=== PATIENT | female | born 1945 | race American Indian/Alaskan Native ===

== ENCOUNTER 2017-09-12 19:40 | Emergency (ER) | payer MEDICARE ==
[2017-09-12 19:49] VITALS: BP 145/89
[2017-09-12] MEDS ORDERED: DECADRON IM ONE (21:51)
[2017-09-12] MEDS ORDERED: BENADRYL PO ONE (21:51)
[2017-09-12] MEDS ORDERED: REGLAN PO ONE (21:51)
--- NOTE | 2017-09-12 21:58 | Emergency Department Report ---
HPI - General Chief Complaint: Allergic Reaction Time Seen by Provider: 09/12/17 21:49 - HPI HPI: Patient is a 69-year-old -Spanish female sure patient states she H last night and went to sleep and woke up with a rash on her neck red raised hives shortness of breath patient has not taken Benadryl. Patient denies chest pain shortness of breath no dizziness no lightheadedness nausea no vomiting. Rash is localized to face and neck ED Past Medical Hx - Past Medical History Hx Hypertension: Yes Hx Diabetes: Yes Hx Arthritis: Yes - Surgical History Past Surgical History?: Yes Hx Cholecystectomy: Yes - Social History Smoking Status: Never Smoker Substance Use Type: None - Medications Home Medications: Home Medications Medication Instructions Recorded Confirmed Last Taken Type ALBUTEROL Inhaler [ProAir HFA 2 puff IH QID PRN #1 inh 06/03/13 Unknown Rx Inhaler] Azithromycin [Zithromax Z-HARVEY] 250 mg PO DAILY #6 tab 06/03/13 Unknown Rx Benazepril/Hydrochlorothiazide 2 tab PO QDAY 06/03/13 06/03/13 06/03/13 12:00 History [Benazepril-Hctz 20-25 mg] Estrogen,Con/M-Progest Acet 1 tab PO QDAY 06/03/13 06/03/13 06/03/13 12:00 History [Prempro 0.45-1.5 mg Tablet] Promethazine /Codeine 5 ml PO Q6H PRN #60 udc 06/03/13 Unknown Rx [Phenergan/Codeine 6.25-10 mg/5 ml] metFORMIN [Glucophage] 500 mg PO QDAY 06/03/13 06/03/13 06/03/13 12:00 History EPINEPHrine [Epipen 2-Harvey] 0.3 mg IJ PRN PRN #1 kit 09/12/17 Unknown Rx Metoclopramide [Reglan] 10 mg PO ACHS PRN #30 tablet 09/12/17 Unknown Rx diphenhydrAMINE [Benadryl CAP] 25 mg PO Q6HR PRN #30 capsule 09/12/17 Unknown Rx ED Review of Systems ROS: Stated complaint: ALLERGIC REACTION Other details as noted in HPI Constitutional: denies: chills, fever Eyes: denies: eye pain, eye discharge, vision change ENT: denies: ear pain, throat pain Respiratory: denies: cough, shortness of breath, wheezing Cardiovascular: denies: chest pain, palpitations Endocrine: no symptoms reported Gastrointestinal: denies: abdominal pain, nausea, diarrhea Genitourinary: denies: urgency, dysuria, discharge Musculoskeletal: denies: back pain, joint swelling, arthralgia Skin: rash (neck face ) Neurological: denies: headache, weakness, paresthesias Psychiatric: denies: anxiety, depression Physical Exam - Physical Exam Vital Signs: Vital Signs 09/12/17 09/12/17 19:40 19:46 Temperature 98.1 F 98.1 F Pulse Rate 89 89 Respiratory 18 17 Rate Blood Pressure 145/89 145/89 O2 Sat by Pulse 99 99 Oximetry General: Patient appears well well hydrated and nontoxic noted hives to face and neck ENT normal . No polyps no postnasal drip airway is patent pharynx mild erythema no lesions no stridor lungs are clear no wheezing CV S1-S2 no MRG regular rate and rhythm. Patient with no respiratory distress no use of accessory muscles ED Course Vital Signs 09/12/17 09/12/17 19:40 19:46 Temperature 98.1 F 98.1 F Pulse Rate 89 89 Respiratory 18 17 Rate Blood Pressure 145/89 145/89 O2 Sat by Pulse 99 99 Oximetry - Reevaluation(s) Reevaluation #1: Patient given Decadron Benadryl Reglan will DC to home in stable condition after observation. 09/12/17 21:56 ED Medical Decision Making - Medical Decision Making pt presents for allergic reaction rash itching hives face neck after eating shrimp, given decadron reglan benadryl no wheezing no sob no cp no dizziness no lightheadedness no n/v , plan dc to home in stable condition, with rx for benadryl, reglan, epipen , pt given epipen teaching at this time, there is no sob pt is a/o x 3 ambulatory gait steady with nad at this time will follow up with pcp in 2-3 days. 2245: pt states all symptoms are improved at this time. will follow up with pcp in 2-3 days Critical care attestation.: If time is entered above; I have spent that time in minutes in the direct care of this critically ill patient, excluding procedure time. ED Disposition Clinical Impression: Allergic reaction Qualifiers: Encounter type: initial encounter Qualified Code(s): T78.40XA - Allergy, unspecified, initial encounter Disposition: TO HOME OR SELFCARE Is pt being admited?: No Does the pt Need Aspirin: No Condition: Good Instructions: Food Allergy (ED), Allergies (ED), Epinephrine (Injection) Prescriptions: diphenhydrAMINE [Benadryl CAP] 25 mg PO Q6HR PRN #30 capsule PRN Reason: allergies EPINEPHrine [Epipen 2-Harvey] 0.3 mg IJ PRN PRN #1 kit PRN Reason: severe allergies Metoclopramide [Reglan] 10 mg PO ACHS PRN #30 tablet PRN Reason: allergies Referrals: SHERIE FRIAS MD [Primary Care Provider] - 3-5 Days Forms: Work/School Release Form(ED) Time of Disposition: 22:49
== END 2017-09-12 22:55 | disposition home or self-care (01) ==
LOC: ED 19:40
DX: T78.40XA Allergy, unspecified, initial encounter (principal); I10 Essential (primary) hypertension; E11.9 Type 2 diabetes mellitus without complications; M19.90 Unspecified osteoarthritis, unspecified site; X58.XXXA Exposure to other specified factors, initial encounter
CPT/HCPCS: 96372; 99282; J1100

== ENCOUNTER 2017-09-15 10:09 | Emergency (ER) | payer MEDICARE ==
--- NOTE | 2017-09-15 15:58 | Emergency Department Report ---
HPI - General Chief Complaint: Allergic Reaction Time Seen by Provider: 09/15/17 15:26 - HPI HPI: 72-year-old female with a past medical history of arthritis, diabetes (diet controlled), and hypertension presents to Hospital complaining of worsening and allergy symptoms. Patient was here on the eighth for allergic reaction after eating shrimp. No previous allergies shrimp reported prior to this episode. Shortly after eating shrimp she noticed a discomfort in her throat and then developed generalized hives with pruritus. Patient presented here was treated with IM Decadron Reglan, and Benadryl. She was discharged on Benadryl, Reglan, and EpiPen. Patient then woke up this morning and noticed upper lip swelling and other symptoms are unchanged. She denies wheezing, shortness of breath. Very minimal discomfort in throat reported. She is currently taking enalapril/ hydrochlorothiazide for many years. ED Past Medical Hx - Past Medical History Previous Medical History?: Yes Hx Hypertension: Yes Hx Diabetes: Yes Hx Arthritis: Yes - Surgical History Past Surgical History?: Yes Hx Cholecystectomy: Yes - Social History Smoking Status: Never Smoker Substance Use Type: Prescribed - Medications Home Medications: Home Medications Medication Instructions Recorded Confirmed Last Taken Type ALBUTEROL Inhaler [ProAir HFA 2 puff IH QID PRN #1 inh 06/03/13 Unknown Rx Inhaler] Azithromycin [Zithromax Z-HARVEY] 250 mg PO DAILY #6 tab 06/03/13 Unknown Rx Benazepril/Hydrochlorothiazide 2 tab PO QDAY 06/03/13 06/03/13 06/03/13 12:00 History [Benazepril-Hctz 20-25 mg] Estrogen,Con/M-Progest Acet 1 tab PO QDAY 06/03/13 06/03/13 06/03/13 12:00 History [Prempro 0.45-1.5 mg Tablet] Promethazine /Codeine 5 ml PO Q6H PRN #60 udc 06/03/13 Unknown Rx [Phenergan/Codeine 6.25-10 mg/5 ml] metFORMIN [Glucophage] 500 mg PO QDAY 06/03/13 06/03/13 06/03/13 12:00 History EPINEPHrine [Epipen 2-Harvey] 0.3 mg IJ PRN PRN #1 kit 09/12/17 Unknown Rx Metoclopramide [Reglan] 10 mg PO ACHS PRN #30 tablet 09/12/17 Unknown Rx diphenhydrAMINE [Benadryl CAP] 25 mg PO Q6HR PRN #30 capsule 09/12/17 Unknown Rx Famotidine [Pepcid] 20 mg PO BID #20 tablet 09/15/17 Unknown Rx Hydrochlorothiazide [HCTZ] 50 mg PO QDAY #60 tablet 09/15/17 Unknown Rx amLODIPine [Norvasc] 10 mg PO DAILY #30 tab 09/15/17 Unknown Rx predniSONE [Deltasone] 40 mg PO BID 5 Days tab 09/15/17 Unknown Rx ED Review of Systems ROS: Stated complaint: ALLERGIC REACTION Other details as noted in HPI Comment: All other systems reviewed and negative Physical Exam - Physical Exam Vital Signs: Vital Signs 09/15/17 10:21 Temperature 97.8 F Pulse Rate 74 Respiratory 18 Rate Blood Pressure 152/74 O2 Sat by Pulse 99 Oximetry Physical Exam: General: No limitations, patient is alert in no acute distress Head exam: Atraumatic, normocephalic Eyes exam: Normal appearance, pupils equal reactive to light, extraocular movements intact ENT: Moist mucous membrane, the minimum upper lip swelling. No posterior pharyngeal swelling or tongue swelling. No stridor. Neck exam: Normal inspection, full range of motion, no meningismus nontender Respiratory exam: Clear to auscultation bilateral, no wheezes, rales, crackles Cardiovascular: Normal rate and rhythm, normal heart sounds Abdomen: Soft, nondistended, and nontender, with normal bowel sounds, no rebound, or guarding Extremity: Full range of motion normal inspection no deformity Back: Normal Inspection, full range of motion, no tenderness Neurologic: Alert, oriented x3, cranial nerves intact, no motor or sensory deficit Psychiatric: normal affect, normal mood Skin: Diffuse hives ED Course Vital Signs 09/15/17 10:21 Temperature 97.8 F Pulse Rate 74 Respiratory 18 Rate Blood Pressure 152/74 O2 Sat by Pulse 99 Oximetry ED Medical Decision Making - Medical Decision Making Patient's symptoms likely secondary to acute allergic reaction to shrimp exposure several days ago. Patient was not placed on steroids. Patient received a additional dose of IM Decadron, Benadryl, and Pepcid in the ED. He was discharged on steroids, Benadryl, and Pepcid. Patient warned that steroids can increase glucose level and is advised to monitor her sugar. She will be discontinued on benazepril given lip swelling. Patient states he takes 2 tablets of the benazepril/hydrochlorothiazide 20-25mg once a day. Therefore Norvasc 10mg and has required HCTZ 50 mg will be prescribed - Differential Diagnosis allergic reaction, angioedema Critical Care Time: No Critical care attestation.: If time is entered above; I have spent that time in minutes in the direct care of this critically ill patient, excluding procedure time. ED Disposition Clinical Impression: Allergic reaction, Angioedema Disposition: DC-01 TO HOME OR SELFCARE Is pt being admited?: No Does the pt Need Aspirin: No Condition: Stable Instructions: Allergies (ED), Angioedema (ED) Additional Instructions: Taken medication as prescribed. Follow up with your doctor within 2 days. Please return if symptoms worsen as indicated by by your discharge instructions. Please note that while taking prednisone your glucose that sugars might be increased. Continue to monitor them and follow-up. I also changed your blood pressure medication. Stop taking the benazepril/ hydrochlorothiazide medication and start taking Norvasc and the prescribed hydrochlorothiazide instead. Please follow with you doctor to determine if his blood pressure is adequately controlled on his medications Prescriptions: amLODIPine [Norvasc] 10 mg PO DAILY #30 tab Famotidine [Pepcid] 20 mg PO BID #20 tablet Hydrochlorothiazide [HCTZ] 50 mg PO QDAY #60 tablet predniSONE [Deltasone] 40 mg PO BID 5 Days tab Referrals: SHERIE FRIAS MD [Primary Care Provider] - 2-3 Days Time of Disposition: 16:35
[2017-09-15] MEDS ORDERED: BENADRYL PO ONE (16:01)
[2017-09-15] MEDS ORDERED: PEPCID PO ONE (16:01)
[2017-09-15] MEDS ORDERED: DECADRON IM ONE (16:02)
[2017-09-15 16:50] VITALS: BP 150/70
== END 2017-09-15 16:49 | disposition home or self-care (01) ==
LOC: ED 10:09
DX: T78.3XXA Angioneurotic edema, initial encounter (principal); I10 Essential (primary) hypertension; E11.9 Type 2 diabetes mellitus without complications; M19.90 Unspecified osteoarthritis, unspecified site
CPT/HCPCS: 96372; 99282; J1100